=== PATIENT | female | born 1975 | race Caucasian/White ===

== ENCOUNTER → 2019-11-03 | Outpatient (CLI) | payer BC ==
[~2019-11-03] MED LIST: AMLO10TA82 PO; CLOB15CR3 TP; DOXY100C2 PO; PRD20T PO; RANI300T4 PO
[2019-11-03 11:19] LABS: ALANINE AMINOTRANSFERASE 24 U/L (0-55); ALKALINE PHOSPHATASE 78 U/L (40-136); BILIRUBIN,TOTAL 0.6 MG/DL (0.1-1.0); BUN/CREATININE RATIO 17; CALCIUM 9.3 MG/DL (8.5-10.1); CARBON DIOXIDE 26 MMOL/L (21-32); CHLORIDE 100 MMOL/L (98-107); CREATININE SERUM 0.75 MG/DL (0.60-1.30); GFR ESTIMATED > 60; GLUCOSE 100 MG/DL (70-105); POTASSIUM 4.3 MMOL/L (3.6-5.0); SODIUM 137 MMOL/L (135-145); TOTAL PROTEIN 7.4 GM/DL (6.4-8.2)
[2019-11-03 11:20] LABS: ALBUMIN 4.8 GM/DL (3.2-4.5)
[2019-11-03 11:24] LABS: HEMOGLOBIN 13.5 G/DL (11.5-16.0); RED CELL DISTRIBUTION WIDTH 13.2 % (10.0-14.5); WHITE BLOOD COUNT 11.9 10^3/uL (4.3-11.0)
[2019-11-03 11:25] LABS: MEAN PLATELET VOLUME 10.6 FL (7.4-10.4)
== END ==
LOC: LAB FS 10:08
PROVIDERS: ATTEND Family Medicine
DX: L40.0 Psoriasis vulgaris (principal)
CPT/HCPCS: 36415; 80053; 85027; 86480

== ENCOUNTER 2020-02-10 05:45 | Outpatient (RCR) | payer BC ==
[~2020-02-10] VITALS: Ht 167.7 cm; Wt 75.5 kg
[2020-02-10] MEDS ORDERED: ROSU10TA28 PO (16:03)
[2020-02-10] MEDS ORDERED: LISI-552 PO (16:03)
[2020-02-10] MEDS ORDERED: MTP25TSR PO (16:03)
== END 2020-02-10 16:04 | disposition home or self-care (01) ==
LOC: PREOP 05:45 → EDSTATUS 11:00 → PREOP 16:04
PROVIDERS: ATTEND Surgery
DX: Z01.818 Encounter for other preprocedural examination (principal)

== ENCOUNTER 2020-02-11 11:02 | Outpatient (RCR) | payer BC ==
[~2020-02-11 11:02] MED LIST changes: +LISI-552 PO; +MTP25TSR PO; +ROSU10TA28 PO
[2020-02-17] MEDS ORDERED: PANT40TA2 PO (15:39)
== END 2020-02-13 09:44 | disposition home or self-care (01) ==
LOC: CARD 11:02
PROVIDERS: ATTEND Internal Medicine Cardiovascular Disease
DX: R00.2 Palpitations (principal); R00.0 Tachycardia, unspecified; E78.2 Mixed hyperlipidemia; I10 Essential (primary) hypertension; L40.9 Psoriasis, unspecified
CPT/HCPCS: 93017; 93225; 93226; 93306

== ENCOUNTER → 2020-02-13 | Outpatient (CLI) | payer BC ==
[~2020-02-13] MED LIST changes: +PANT40TA2 PO
== END ==
LOC: LAB FS 10:00
PROVIDERS: ATTEND Surgery
DX: K21.9 Gastro-esophageal reflux disease without esophagitis (principal); R13.10 Dysphagia, unspecified; Z20.828 Contact with and (suspected) exposure to other viral communicable diseases
CPT/HCPCS: 87635

== ENCOUNTER → 2020-02-17 | Outpatient (CLI) | payer BC ==
[~2020-02-17] VITALS: Ht 167.6 cm; Wt 75.0 kg
[~2020-02-17] MED LIST changes: +HURRICAINE EXT TUBE (BENZOCAINE) XX PRN; +LACTATED RINGERS 1,000 ML IV ONE; +LACTATED RINGERS 1,000 ML IV STA; +MIDAZOLAM 2 MG/2 ML (VERSED) VIAL ONE; +PROPOFOL INJECTION 50 ML IV ONE
[2020-02-17 13:45] VITALS: BP 126/88
== END | disposition home or self-care (01) ==
LOC: RAD 13:36
PROVIDERS: ATTEND Surgery
DX: K21.0 Gastro-esophageal reflux disease with esophagitis (principal); K29.50 Unspecified chronic gastritis without bleeding; K44.9 Diaphragmatic hernia without obstruction or gangrene
CPT/HCPCS: 84703; 88305

== ENCOUNTER → 2020-02-17 | Day surgery (SDC) | payer BC ==
[~2020-02-17] VITALS: Ht 167 cm; Wt 75.0 kg
[2020-02-17] VITALS (8 sets, daily range): BP systolic 126–166; BP diastolic 82–105
[~2020-02-17] MED LIST changes: +MIDAZOLAM 2 MG/2 ML (VERSED) VIAL INJ ONE; -MIDAZOLAM 2 MG/2 ML (VERSED) VIAL ONE; -PROPOFOL INJECTION 50 ML IV ONE; +proPOfol 500 MG/50 ML (DIPRIVAN) VIAL IV ONE
--- NOTE | 2020-02-17 15:39 | Anesthesia-General Post-Op ---
MAC Patient Condition Mental Status/LOC: Same as Preop Cardiovascular: Satisfactory Nausea/Vomiting: Absent Respiratory: Satisfactory Pain: Controlled Complications: Absent Post Op Complications Complications None Follow Up Care/Instructions Patient Instructions None needed. Anesthesiology Discharge Order Discharge Order Patient is doing well, no complaints, stable vital signs, no apparent adverse anesthesia problems. No complications reported per nursing. LAZARA MICHELLE CRNA Feb 17, 2020 15:38
--- NOTE | 2020-02-18 00:10 | OPERATIVE REPORT ---
DATE OF SERVICE: 02/17/2020 PREOPERATIVE DIAGNOSES: Gastroesophageal reflux disease and dysphagia. POSTOPERATIVE DIAGNOSES: Small hiatal hernia, reflux esophagitis. PROCEDURE: EGD with biopsy. SURGEON: Rosalinda Delarosa DO ANESTHESIA: Per MANAGED CARE SPECIALIST. ESTIMATED BLOOD LOSS: None. COMPLICATIONS: None. INDICATIONS: The patient is a 44-year-old female with GERD symptoms and dysphagia symptoms. She understands risks and benefits of procedure to further evaluate. Consent was signed in the chart. DESCRIPTION OF PROCEDURE: The patient was taken to the endoscopy suite, placed in left lateral recumbent position. Timeout was performed. Scope was inserted in mouth, down the esophagus, stomach and into the duodenum without difficulty. There were no polyps, masses or ulcerations within the duodenum. Scope was slowly retracted back into the stomach where it was further insufflated. A couple of small benign appearing polyps. No masses or ulcerations or erythematous changes. Scope was retroflexed noting a small hiatal hernia, no other pathology noted. Scope was returned to its normal position. Biopsy of the antrum was obtained. Scope was then slowly retracted back to the distal esophagus, some changes of reflux esophagitis. Biopsies were obtained. Scope was then slowly retracted back to completely remove noting no other pathology. The patient tolerated procedure well without any complications. She was taken to recovery room in stable condition. RECOMMENDATIONS: The patient started on Protonix 40 mg daily. We will follow up in the office in approximately 3 weeks to reevaluate symptoms and pathology. Further recommendations pending those results. Job ID: [id number] DocumentID: [id number] Dictated Date: 02/17/2020 15:42:38 Mop Maker Date: 02/18/2020 00:10:40 Dictated By: ROSALINDA DELAROSA DO
== END | disposition home or self-care (01) ==
LOC: ENDO 14:20
PROVIDERS: ATTEND Surgery
DX: K21.0 Gastro-esophageal reflux disease with esophagitis (principal); K44.9 Diaphragmatic hernia without obstruction or gangrene; K29.50 Unspecified chronic gastritis without bleeding; I10 Essential (primary) hypertension; E78.2 Mixed hyperlipidemia; Z87.891 Personal history of nicotine dependence; Z79.899 Other long term (current) drug therapy

== ENCOUNTER → 2020-02-25 | Outpatient (CLI) | payer BC ==
[~2020-02-25] MED LIST changes: +BARIUM for suspension 96% w/w (Vanilla Silq Medium Density) PO ONE; +BARIUM for suspension 98% w/w (Vanilla Silq High Density) PO ONE; -HURRICAINE EXT TUBE (BENZOCAINE) XX PRN; -LACTATED RINGERS 1,000 ML IV ONE; -LACTATED RINGERS 1,000 ML IV STA; -MIDAZOLAM 2 MG/2 ML (VERSED) VIAL INJ ONE; -proPOfol 500 MG/50 ML (DIPRIVAN) VIAL IV ONE
--- NOTE | 2020-02-25 10:10 | Diagnostic Imaging Report ---
INDICATION: Dysphagia and gastroesophageal reflux. FINDINGS: The preliminary radiograph demonstrates a normal sized heart. The lungs are clear. There is no pleural effusion or pneumothorax. The mediastinum is unremarkable. The esophageal motility was assessed fluoroscopically. There is satisfactory efficacy of the primary peristaltic wave. There are no intrinsic or extrinsic esophageal masses. The esophageal mucosa is unremarkable. There is a small hiatal hernia. There is no significant gastroesophageal reflux appreciated despite evocative maneuvers. IMPRESSION: Small hiatal hernia; otherwise, unremarkable double contrast esophagram. Dictated by: Dictated on workstation # [id number]
== END ==
LOC: RAD 08:52
PROVIDERS: ATTEND Surgery
DX: K44.9 Diaphragmatic hernia without obstruction or gangrene (principal)
CPT/HCPCS: 74220

== ENCOUNTER 2020-03-10 08:23 | Day surgery (SDC) | payer BC ==
[~2020-03-10] VITALS: Ht 167.7 cm; Wt 75.0 kg
[~2020-03-10 08:23] MED LIST changes: -BARIUM for suspension 96% w/w (Vanilla Silq Medium Density) PO ONE; -BARIUM for suspension 98% w/w (Vanilla Silq High Density) PO ONE
[2020-03-10 08:37] VITALS: BP 147/95
[2020-03-10] MEDS ORDERED: LIDOCAINE 1% INJ 20 ML 20 ML VIAL ONE (08:57)
--- NOTE | 2020-03-10 09:56 | Implantation of Loop Monitor ---
Implant of Loop Monitior IMPLANTATION OF LOOP MONITOR REPORT DATE OF PROCEDURE: 03/10/20 PREOP DIAGNOSIS: Palpitation, ventricular tachycardia POSTOP DIAGNOSIS: Palpitation, ventricular tachycardia PROCEDURE DETAILS: The patient is a 44 female with history of recurrent palpitation, had a Holter monitor in the past, used her apical watch which detected wide complex tachycardia associated with the palpitation. Therefore implantable loop recorder was discussed and agreed with the patient. Informed consent was taken. All risks and complications were discussed at length. The patient was draped and prepped in the usual sterile fashion. Local anesthesia was lidocaine, which was given in the substernal area close to the 4th intercostal space. Loop monitor [employer] with serial number [id number] was implanted according to the protocol. Steri- Strips were placed at the end of the procedure. There were no complications and the patient tolerated the procedure well. The device was interrogated with a voltage of. ANESTHESIA: Local anesthesia with lidocaine. COMPLICATIONS: None CONTRAST/FLUOROSCOPY: None CONCLUSION: Successful implantation of flu monitor with no complication FINAL DIAGNOSIS: Recurrent palpitation Ventricular tachycardia ELIZABETH BEGUM MD Mar 10, 2020 9:56 am
== END 2020-03-10 10:04 | disposition home or self-care (01) ==
LOC: CATH 08:23
PROVIDERS: ATTEND Internal Medicine Cardiovascular Disease
DX: I47.2 Ventricular tachycardia (principal); R00.2 Palpitations; E78.2 Mixed hyperlipidemia; R13.10 Dysphagia, unspecified; I10 Essential (primary) hypertension; Z87.891 Personal history of nicotine dependence; L40.9 Psoriasis, unspecified; Z79.899 Other long term (current) drug therapy
CPT/HCPCS: 33285; C1764

== ENCOUNTER → 2021-08-01 | Outpatient (CLI) | payer OTHER ==
[~2021-08-01] MED LIST changes: -LISI-552 PO; +LISI20TA26 PO
--- NOTE | 2021-08-01 14:23 | Diagnostic Imaging Report ---
Indication: Neck pain, fall. Findings: 3 views of the cervical column demonstrate normal alignment. There is no subluxation, fracture or significant degeneration. No osseous lesion. Impression: Negative cervical spine. Dictated by: Dictated on workstation # [id number]
== END ==
LOC: RAD FS 13:38
PROVIDERS: ATTEND Nurse Practitioner Family
DX: M54.2 Cervicalgia (principal); W19.XXXA Unspecified fall, initial encounter
CPT/HCPCS: 72040

== ENCOUNTER 2022-05-30 05:38 | Outpatient (CLI) | payer OTHER ==
[~2022-05-30] VITALS: Ht 167.4 cm; Wt 79.0 kg
[2022-05-31] MEDS ORDERED: SEMA0.25 SQ (14:59)
[2022-05-31] MEDS ORDERED: CELE50CA PO (14:59)
== END 2022-05-31 15:02 | disposition home or self-care (01) ==
LOC: PREOP 05:38
PROVIDERS: ATTEND Surgery
DX: Z01.818 Encounter for other preprocedural examination (principal)

== ENCOUNTER 2022-06-06 07:07 | Day surgery (SDC) | payer OTHER ==
[~2022-06-06] VITALS: Ht 167.4 cm; Wt 79.0 kg
[~2022-06-06 07:07] MED LIST changes: +CELE50CA PO; +SEMA0.25 SQ
[2022-06-06] MEDS ORDERED: LACTATED RINGERS 1,000 ML IV STA (07:08)
[2022-06-06] MEDS ORDERED: HURRICAINE EXT TUBE (BENZOCAINE) XX PRN (07:15)
[2022-06-06] MEDS ORDERED: PROPOFOL INJECTION 50 ML IV ONE (07:26)
[2022-06-06 07:30] VITALS: BP 125/85
[2022-06-06] MEDS ORDERED: proPOfol 200 MG/20 ML (DIPRIVAN) VIAL IV ONE (08:41)
[2022-06-06 08:45] VITALS: BP 112/72
--- NOTE | 2022-06-06 08:46 | Anesthesia-General Post-Op ---
MAC Patient Condition Mental Status/LOC: Same as Preop Cardiovascular: Satisfactory Nausea/Vomiting: Absent Respiratory: Satisfactory Pain: Controlled Complications: Absent Post Op Complications Complications None Follow Up Care/Instructions Patient Instructions None needed. Anesthesiology Discharge Order Discharge Order Patient is doing well, no complaints, stable vital signs, no apparent adverse anesthesia problems. No complications reported per nursing. JEWEL LANGE CRNA Jun 06, 2022 08:46
[2022-06-06 08:50] VITALS: BP 123/82
--- NOTE | 2022-06-06 08:50 | Discharge Inst-Simple/Standard ---
Discharge Inst-Standard Patient Instructions/Follow Up Plan of Care/Instructions/FU: 2 weeks follow-up with Dr. Delarosa Activity as Tolerated: Yes Discharge Diet: Regular Diet (High fiber) ROSALINDA DELAROSA DO Jun 06, 2022 08:50
[2022-06-06 09:35] VITALS: BP 123/82
--- NOTE | 2022-06-06 12:47 | OPERATIVE REPORT ---
DATE OF SERVICE: 06/06/2022 PREOPERATIVE DIAGNOSES: GERD and screening colonoscopy. POSTOPERATIVE DIAGNOSES: Diverticulosis, colon polyps x2, slight reflux esophagitis. PROCEDURE: EGD with biopsies, colonoscopy with hot biopsy polypectomy x2. SPEAKER WIRER: Rosalinda Delarosa DO ANESTHESIA: Per CNA PCT. BLOOD LOSS: None. COMPLICATIONS: None. INDICATIONS: The patient is a 46-year-old female with worsening GERD symptoms and needing screening colonoscopy. She understands the risks and benefits of procedure and wishes to proceed. Consent was signed in the chart. DESCRIPTION OF PROCEDURE: The patient was taken to the endoscopy suite, placed in left lateral recumbent position. A timeout was performed. Scope was inserted in the mouth, down the esophagus, stomach and the duodenum without difficulty. No polyps, masses, ulcerations within the duodenum. Scope was slowly retracted back into the stomach where it was further insufflated. No polyps, masses or ulcerations. Biopsy of the antrum was obtained. Scope was slowly retracted back and retroflexed noting no other pathology. Scope was returned to its normal position, slowly withdrawn to the distal esophagus, changes of reflux esophagitis present. No polyps, masses or ulcerations. Biopsy of the GE junction was obtained. Scope was slowly retracted back until completely removed. The patient tolerated the procedure well. Then, colonoscopy was performed. Digital rectal exam was performed. No palpable polyps, masses or ulcerations. Scope was inserted in the rectum and advanced all the way to the cecum with minimal difficulty. Prep was adequate. Scope was slowly retracted back. No polyps, masses, ulcerations. In the cecum and the ascending colon, a small polyp was present, which hot biopsy polypectomy was performed. Scope was then continuously retracted back. A polyp in the ascending colon, which hot biopsy polypectomy was performed. Scope was then continuously slowly retracted back. No polyps, masses or ulcerations ascending, transverse, descending colon. In the sigmoid portion, another polyp was present, which hot biopsy polypectomy was performed. Also, noting diverticulosis. The scope was then continuously slowly retracted back into the rectum where it was also retroflexed noting no other pathology. Scope was returned to its normal position, slowly withdrawn to completely remove. The patient tolerated the procedure well without complications. She was taken to recovery room in stable condition. RECOMMENDATIONS: The patient will need repeat colonoscopy in 5 years and any issues before that be seen at that time. We also recommend high fiber diet due to diverticulosis. Await biopsy results for upper endoscopy. We will continue on Protonix. Would consider adding Carafate depending on biopsy results and symptoms. Job ID: [id number] DocumentID: [id number] Dictated Date: 06/06/2022 08:49:18 Automobile Assembler Date: 06/06/2022 12:45:00 Dictated By: ROSALINDA DELAROSA DO
== END 2022-06-06 09:45 | disposition home or self-care (01) ==
LOC: ENDO 07:07
PROVIDERS: ATTEND Surgery
DX: Z12.11 Encounter for screening for malignant neoplasm of colon (principal); K63.5 Polyp of colon; K57.30 Diverticulosis of large intestine without perforation or abscess without bleeding; K21.00 Gastro-esophageal reflux disease with esophagitis, without bleeding; Z79.899 Other long term (current) drug therapy; Z87.891 Personal history of nicotine dependence
CPT/HCPCS: 84703; 88305

== ENCOUNTER 2022-12-06 19:14 | Emergency (ER) | payer OTHER ==
[~2022-12-06] VITALS: Ht 167 cm; Wt 75.7 kg
[2022-12-06] MEDS ORDERED: LORazepam 0.5 MG (ATIVAN) TABLET PO STA (19:23)
[2022-12-06] MEDS ORDERED: FAMOTIDINE 20 MG (PEPCID) TABLET PO STA (19:26)
[2022-12-06] MEDS ORDERED: ANTACID SUSP 30 ML UDC (MYLANTA) PO ONE (19:30)
[2022-12-06] MEDS ORDERED: ASPIRIN 81 MG CHEW (CHILDREN'S ASA) PO ONE (19:30)
[2022-12-06] MEDS ORDERED: LIDOCAINE 2% VISCOUS 15 ML UDC PO ONE (19:30)
[2022-12-06 19:31] LABS: BASOPHILS # (AUTO) 0.1 10^3/uL (0.0-0.1); BASOPHILS % (AUTO) 0 % (0-10); EOSINOPHILS # (AUTO) 0.5 10^3/uL (0.0-0.3); EOSINOPHILS % (AUTO) 3 % (0-10); HEMATOCRIT 40 % (35-52); HEMOGLOBIN 13.7 g/dL (11.5-16.0); LYMPHOCYTES # (AUTO) 5.5 10^3/uL (1.0-4.0); LYMPHOCYTES % (AUTO) 33 % (12-44); MEAN CORPUSCULAR HEMOGLOBIN 29 pg (25-34); MEAN CORPUSCULAR HGB CONC 35 g/dL (32-36); MEAN CORPUSCULAR VOLUME 85 fL (80-99); MONOCYTES % (AUTO) 6 % (0-12); NEUTROPHILS # (AUTO) 9.4 10^3/uL (1.8-7.8); NEUTROPHILS % (AUTO) 57 % (42-75); PLATELET COUNT 296 10^3/uL (130-400); WHITE BLOOD COUNT 16.5 10^3/uL (4.3-11.0)
--- NOTE | 2022-12-06 19:31 | ED Chest Pain ---
General Stated Complaint: CHEST PAINS, L ARM NUMBNESS Source: patient, old records Exam Limitations: no limitations History of Present Illness Date Seen by Provider: Dec 06, 2022 Time Seen by Provider: 19:14 Initial Comments 46yoF with PMH of ?vtach (caught on apple watch one time and reviewed with Dr. Archer, loop recorder in place but not functioning), hypertension, GERD coming in due to chest pain. First episode was 4-1/2 hours ago, just lasted roughly a second. Has had roughly 6-8 more episodes that each lasted roughly 1 second since then, center of her chest, sharp, immediate and then it is gone. Has never had pain like this before. States it feels different than previous episodes of reflux. Denies any prior history of heart disease, no stents, no DVT or PE, no lower extremity swelling or pain, no hemoptysis, no recent surgery, no recent long travel, no fever or severe shortness of breath. LMP was 2 weeks ago. Allergies and Home Medications Allergies Coded Allergies: Sulfa (Sulfonamide Antibiotics) (Verified Allergy, Intermediate, TRIGGER AUTOIMMUNE PROBLEM, 01/18/12) Patient Home Medication List Home Medication List Reviewed: Yes Celecoxib (Celebrex) 50 Mg Capsule, 50 MG PO UD, (Reported) Entered as Reported by: URIEL CAICEDO on 05/31/22 145 Lisinopril (Lisinopril) 20 Mg Tablet, 20 MG PO DAILY, (Reported) Entered as Reported by: ALIS SOLIS on 02/10/20 1603 Metoprolol Succinate (Metoprolol Succinate) 25 Mg Tab.er.24h, 25 MG PO HS, (Reported) Entered as Reported by: ALIS SOLIS on 02/10/20 1603 Pantoprazole Sodium (Protonix) 40 Mg Tablet.dr, 40 MG PO DAILY Prescribed by: ROSALINDA MCKEON on 02/17/20 1539 Rosuvastatin Calcium (Rosuvastatin Calcium) 10 Mg Tablet, 10 MG PO HS, (Reported) Entered as Reported by: ALIS SOLIS on 02/10/20 1603 Semaglutide (Ozempic) Unknown Strength Pen.injctr, Unknown Dose SQ, (Reported) Entered as Reported by: URIEL CAICEDO on 05/31/22 1459 Review of Systems Review of Systems Constitutional: No fever Respiratory: See HPI Cardiovascular: See HPI Gastrointestinal: No Symptoms Reported Genitourinary: No Symptoms Reported Musculoskeletal: no symptoms reported Skin: no symptoms reported Psychiatric/Neurological: No Symptoms Reported Endocrine: No Symptoms Reported Past Zzhrpil-Ejzqlk-Gdnrtz Hx Patient Social History Tobacco Use?: No Smoking Status: Former Smoker Immunizations Up To Date First/Initial COVID19 Vaccinat: 2020 Second COVID19 Vaccination Sarbjit: 2020 Third COVID19 Vaccination Date: 2021 Seasonal Allergies Seasonal Allergies: Yes Past Medical History Surgeries: Yes (GALLBLADDER, C-SECTIONSX2) Section, Gallbladder Respiratory: No Currently Using CPAP: No Cardiac: Yes (LOOP RECORDER INPLACE, TACHYCARDIA (DR ARCHER)) Hypertension, Palpitations Neurological: No Reproductive Disorders: No Genitourinary: No Gastrointestinal: Yes Gastroesophageal Reflux, Hiatal Hernia Musculoskeletal: No Endocrine: No HEENT: No Cancer: No Did You Recieve Any Treatments: No Psychosocial: No Integumentary: No Blood Disorders: Yes Adverse Reaction/Blood Tranf: No Physical Exam Vital Signs Vital Signs - First Documented 12/06/22 19:17 Temp 36.9 Pulse 82 Resp 24 B/P (MAP) 171/96 (121) Pulse Ox 100 Capillary Refill : Height, Weight, BMI Height: '" Weight: lbs. oz. kg; 28.19 BMI Method:Stated General Appearance: WD/WN, Anxious HEENT: PERRL/EOMI, Normal ENT Inspection, Pharynx Normal Neck: Full Range of Motion, Normal Inspection, Non Tender, Supple Respiratory: Chest Non Tender, Lungs Clear, Normal Breath Sounds, No Accessory Muscle Use, No Respiratory Distress Cardiovascular: Regular Rate, Rhythm, No Edema, Normal Peripheral Pulses Gastrointestinal: Normal Bowel Sounds, Non Tender, Soft; No Distended, No Guarding Extremity: Normal Capillary Refill, Normal Inspection, Normal Range of Motion, Non Tender, No Calf Tenderness, No Pedal Edema Neurologic/Psychiatric: Alert, No Motor/Sensory Deficits, Normal Mood/Affect Skin: Normal Color, Warm/Dry Progress/Results/Core Measures Results/Orders Lab Results Laboratory Tests Test 12/06/22 19:20 12/06/22 20:45 Range/Units White Blood Count 16.5 H 4.3-11.0 10^3/uL Red Blood Count 4.70 3.80-5.11 10^6/uL Hemoglobin 13.7 11.5-16.0 g/dL Hematocrit 40 35-52 % Mean Corpuscular Volume 85 80-99 fL Mean Corpuscular Hemoglobin 29 25-34 pg Mean Corpuscular Hemoglobin Concent 35 32-36 g/dL Red Cell Distribution Width 13.5 10.0-14.5 % Platelet Count 296 130-400 10^3/uL Mean Platelet Volume 10.0 9.0-12.2 fL Immature Granulocyte % (Auto) 1 % Neutrophils (%) (Auto) 57 42-75 % Lymphocytes (%) (Auto) 33 12-44 % Monocytes (%) (Auto) 6 0-12 % Eosinophils (%) (Auto) 3 0-10 % Basophils (%) (Auto) 0 0-10 % Neutrophils # (Auto) 9.4 H 1.8-7.8 10^3/uL Lymphocytes # (Auto) 5.5 H 1.0-4.0 10^3/uL Monocytes # (Auto) 1.0 0.0-1.0 10^3/uL Eosinophils # (Auto) 0.5 H 0.0-0.3 10^3/uL Basophils # (Auto) 0.1 0.0-0.1 10^3/uL Immature Granulocyte # (Auto) 0.1 0.0-0.1 10^3/uL Neutrophils % (Manual) 57 % Lymphocytes % (Manual) 36 % Monocytes % (Manual) 5 % Eosinophils % (Manual) 2 % Toxic Granulation 1+ Blood Morphology Comment NORMAL Prothrombin Time 12.4 12.2-14.7 SEC INR Comment 0.9 0.8-1.4 Activated Partial Thromboplast Time 29 24-35 SEC D-Dimer 0.81 H 0.00-0.49 UG/ML Sodium Level 136 135-145 MMOL/L Potassium Level 3.2 L 3.6-5.0 MMOL/L Chloride Level 99 98-107 MMOL/L Carbon Dioxide Level 26 21-32 MMOL/L Anion Gap 11 5-14 MMOL/L Blood Urea Nitrogen 8 7-18 MG/DL Creatinine 0.80 0.60-1.30 MG/DL Estimat Glomerular Filtration Rate 91 BUN/Creatinine Ratio 10 Glucose Level 158 H 70-105 MG/DL Calcium Level 9.6 8.5-10.1 MG/DL Corrected Calcium 9.2 8.5-10.1 MG/DL Magnesium Level 1.8 1.6-2.4 MG/DL Total Bilirubin 0.6 0.1-1.0 MG/DL Aspartate Amino Transf (AST/SGOT) 21 5-34 U/L Alanine Aminotransferase (ALT/SGPT) 30 0-55 U/L Alkaline Phosphatase 108 40-136 U/L Troponin I < 0.30 < 0.30 <0.30 NG/ML Pro-B-Type Natriuretic Peptide < 36.0 <125.0 PG/ML Total Protein 7.4 6.4-8.2 GM/DL Albumin 4.5 3.2-4.5 GM/DL Lipase 42 8-78 U/L My Orders Orders - HARLEY GASPAR MD Cbc With Automated Diff (12/06/22:) Magnesium (12/06/22:) Chest 1 View Ap/Pa Only (12/06/22:) Ekg Tracing (12/06/22:) Comprehensive Metabolic Panel (12/06/22:) Protime With Inr (12/06/22:) Partial Thromboplastin Time (12/06/22:) O2 (12/06/22:) Monitor-Rhythm Ecg Trace Only (12/06/22:) Aspirin Chewable Tablet (Baby Aspirin Ch (12/06/22 19:30) Ed Iv/Invasive Line Start (12/06/22:) Lipase (12/06/22 19:) Fibrin Degradation Products (12/06/22:) Troponin I Fs (12/06/22:) Probnp Fs (12/06/22:) Lorazepam Tablet (Ativan Tablet) (12/06/22 19:23) Lidocaine 2% Viscous 15 Ml (Xylocaine Vi (12/06/22 19:30) Famotidine Tablet (Pepcid Tablet) (12/06/22 19:26) Antacid Suspension (Mylanta Suspension (12/06/22 19:30) Manual Differential (12/06/22 18:20) Troponin I Fs (12/06/22 20:45) Iohexol Injection (Omnipaque 350 Mg/Ml 1 (12/06/22 20:15) Received Contrast (Hold Metformin- Contr (12/06/22 20:15) Sodium Chloride Flush (Catheter Flush Sy (12/06/22 20:15) Ns (Ivpb) (Sodium Chloride 0.9% Ivpb Bag (12/06/22 20:15) Urine Bedside (12/06/22 20:14) Ct Angio Chest W (12/06/22 20:31) Medications Given in ED Current Medications Medications Dose Ordered Sig/Manisha Route Start Time Stop Time Status Last Admin Dose Admin Al Hydrox/Mg Hydrox/Simethicone 30 ml ONCE ONCE PO 12/06/22 19:30 12/06/22 19:31 DC 12/06/22 19:32 30 ML Aspirin 324 mg ONCE ONCE PO 12/06/22 19:30 12/06/22 19:31 DC 12/06/22 19:32 324 MG Iohexol 100 ml ONCE ONCE IV 12/06/22 20:15 12/06/22 20:16 DC 12/06/22 20:49 100 ML Lidocaine HCl 15 ml ONCE ONCE PO 12/06/22 19:30 12/06/22 19:31 DC 12/06/22 19:32 15 ML Sodium Chloride 10 ml NEEDED PRN IV 12/06/22 20:15 12/06/22 20:49 10 ML Sodium Chloride 100 ml ONCE ONCE IV 12/06/22 20:15 12/06/22 20:16 DC 12/06/22 20:49 100 ML Vital Signs/I&O 12/06/22 19:17 Temp 36.9 Pulse 82 Resp 24 B/P (MAP) 171/96 (121) Pulse Ox 100 Progress Progress Note : Progress Note 46-year-old female with above history coming in due to chest pain. ABCs were intact and vitals were stable on presentation. Physical exam reassuring with no focal abnormalities, specifically, no clinical signs of a DVT. EKG ordered and interpreted by me showing no acute ischemic changes. Chest x-ray ordered and interpreted by me showing no obvious pneumothorax, normal cardiac silhouette, no obvious pneumonia. An IV was placed and basic labs were obtained including cardiac biomarkers. White blood count elevated which is nonspecific, troponin negative, creatinine normal, test negative, D-dimer slightly elevated. CTA chest was then ordered which on my interpretation I do not see any large central PE. Patient did receive aspirin on arrival as well as oral Ativan and a GI cocktail. She had 1 episode roughly 20 minutes after receiving the medications where she had 1 second of chest discomfort. Repeat troponin was then ordered and was negative. The radiology reports did not come, we had to contact the implementation specialist payroll and have it faxed. It was negative for any acute findings on the CTA chest. Patient feeling better, I believe stable for discharge with outpatient follow-up. She was sent home with strict return precautions Initial ECG Impression Date: Dec 06, 2022 Initial ECG Impression Time: 19:20 Initial ECG Rate: 81 Initial ECG Rhythm: Normal Sinus Comment Narrow QRS, normal axis, no significant ST changes or T wave abnormalities Diagnostic Imaging Diagonstic Imaging: Xray (chest), CT (CTA chest) Departure Impression Primary Impression: Chest pain Qualified Codes: R07.82 - Intercostal pain Disposition: HOME, SELF-CARE Condition: Stable Departure-Patient Inst. Decision time for Depature: 21:35 Referrals: ELIZABETH ARCHER MD SELF,LEATHA RODRIGUES (PCP/Family) Primary Care Physician Patient Instructions: Chest Pain (DC) Add. Discharge Instructions: The chest pain does not seem to be life-threatening at this time. We still recommend following up with Dr. Arcehr in regards to it. You can take Tylenol or ibuprofen for the pain as well. Work/School Note: Family Work Note, Patient Received Medical Care In the Emergency Department On: Dec 06, 2022 Patient Will Be Able to Return to Work/School On: Dec 07, 2022 Work Release Form Date Seen in the Emergency Department: Dec 06, 2022 Return to Work: Dec 08, 2022 Restrictions: No Restrictions HARLEY GASPAR MD Dec 06, 2022 19:31
[2022-12-06 20:00] LABS: EOSINOPHILS % (MANUAL) 2 %; FIBRIN DEGRADATION PRODUCTS 0.81 UG/ML (0.00-0.49); INR 0.9 (0.8-1.4); LYMPHOCYTES % (MANUAL) 36 %; MONOCYTES % (MANUAL) 5 %; NEUTROPHILS % (MANUAL) 57 %; PROTHROMBIN TIME PATIENT 12.4 SEC (12.2-14.7)
[2022-12-06 20:01] LABS: CHLORIDE 99 MMOL/L (98-107); POTASSIUM 3.2 MMOL/L (3.6-5.0); RBC MORPH NORMAL; SODIUM 136 MMOL/L (135-145); TOXIC GRANULATION/VACUOLAZATIO 1+
[2022-12-06 20:02] LABS: ALANINE AMINOTRANSFERASE 30 U/L (0-55); ALBUMIN 4.5 GM/DL (3.2-4.5); ALKALINE PHOSPHATASE 108 U/L (40-136); BILIRUBIN,TOTAL 0.6 MG/DL (0.1-1.0); BUN/CREATININE RATIO 10; CALCIUM 9.6 MG/DL (8.5-10.1); CARBON DIOXIDE 26 MMOL/L (21-32); GFR ESTIMATED 91; GLUCOSE 158 MG/DL (70-105); LIPASE 42 U/L (8-78); MAGNESIUM 1.8 MG/DL (1.6-2.4); TOTAL PROTEIN 7.4 GM/DL (6.4-8.2)
[2022-12-06] MEDS ORDERED: CATHETER FLUSH 10 ML SYR IV PRN (20:15)
[2022-12-06] MEDS ORDERED: NS 100 ML (IVPB) BAG IV ONE (20:15)
[2022-12-06] MEDS ORDERED: HOLD METFORMIN - RECEIVED CONTRAST 20 ML VIAL IV SCH (20:15)
[2022-12-06] MEDS ORDERED: IOHEXOL 350 MG/ML 100 ML (OMNIPAQUE 350) VIAL IV ONE (20:15)
[2022-12-06 21:40] VITALS: BP 140/88
--- NOTE | 2022-12-06 23:28 | Diagnostic Imaging Report ---
CLINICAL INDICATION: Patient with chest pain. EXAM: Portable chest x-ray upright view. COMPARISON: None. FINDINGS: Lungs/pleura: Lungs are clear. There is no pneumothorax. There is no pleural effusion. Mediastinum: Unremarkable. Pulmonary vasculature: Unremarkable. Heart: Heart size is within normal limits. Loop recorder is seen overlying the left chest region. Bones/extrathoracic soft tissue: Unremarkable. IMPRESSION: There is no radiographic evidence of acute cardiopulmonary process. Dictated by: Dictated on workstation # [id number]
--- NOTE | 2022-12-06 23:28 | Diagnostic Imaging Report ---
CLINICAL INDICATION: Patient with chest pain and positive d-dimer. Exam: CT angiogram of the chest performed with 100 cc Omnipaque 350 IV contrast. Coronal and oblique MIP images of the vasculature were created to better evaluate anatomy. Auto Exposure Controls were utilized during the CT exam to meet ALARA standards for radiation dose reduction. Comparison: Chest x-ray dated 12/06/2022. Findings: There is no evidence of pulmonary embolism. There is no thoracic aortic dissection or aneurysm. There is borderline enlargement of the ascending thoracic aorta measuring 3.5 cm in greatest AP dimension. Lungs are clear. There is no pleural effusion pneumothorax. There is no mediastinal or axillary lymphadenopathy. Mediastinal structures and heart shows no significant abnormality. The visualized portions of the upper abdominal structures are unremarkable. Bone show no significant acute process. Impression: 1: There is no evidence of pulmonary embolism. 2: There is mild vascular ectasia of the ascending thoracic aorta. 3: There is no lung infiltrate. Dictated by: Dictated on workstation # [id number]
== END 2022-12-06 21:40 | disposition home or self-care (01) ==
LOC: EDUNIT# 19:14 → ER FS 19:16
DX: R07.89 Other chest pain (principal); D72.829 Elevated white blood cell count, unspecified
CPT/HCPCS: 36415; 71045; 71275; 80053; 83690; 83735; 83880; 84484; 84703; 85007; 85027; 85379; 85610; 85730; 93005; 93041; Q9967